=== PATIENT | female | born 2005 | race Caucasian/White ===

== ENCOUNTER → 2023-10-17 | Outpatient (CLI) | payer OTHER ==
[2023-10-17 19:02] LABS: BASOPHILS ABSOLUTE AUTO 0.02 K/mm3 (0.00-0.23); BASOPHILS PERCENT AUTO 0 % (0-2); EOSINOPHILS ABSOLUTE AUTO 0.06 K/mm3 (0.00-0.68); EOSINOPHILS PERCENT AUTO 1 % (0-6); Hematocrit 36.5 % (33.0-51.0); Hemoglobin 12.2 g/dL (11.5-16.0); IMMATURE GRAN ABSOLUTE AUTO 0.01 K/mm3 (0.00-0.10); IMMATURE GRAN PERCENT AUTO 0 % (0-1); LYMPHOCYTES PERCENT AUTO 44 % (21-46); MONOCYTES ABSOLUTE AUTO 0.37 K/mm3 (0.16-1.47); MONOCYTES PERCENT AUTO 8 % (4-13); Mean Corpuscular HGB 31.8 pg (26.0-34.0); Mean Corpuscular HGB Conc 33.4 g/dL (31.5-36.5); Mean Corpuscular Volume 95 fL (80-100); Mean Platelet Volume 10.9 fL (9.1-12.4); NEUTROPHILS ABSOLUTE AUTO 2.25 K/mm3 (1.96-9.15); NEUTROPHILS PERCENT AUTO 47 % (41-73); Platelet Count 263 K/mm3 (150-400); RDW Coefficient Variation 11.9 % (11.7-14.2); RDW Standard Deviation 41.4 fL (35.1-46.3); Red Blood Cell Count 3.84 M/mm3 (3.80-5.20); White Blood Cell Count 4.81 K/mm3 (4.00-11.30)
[2023-10-17 21:22] LABS: Thyroid Stimulating Hormone 1.03 uIU/mL (0.360-4.800)
[2023-10-17 21:23] LABS: Albumin, Blood 4.2 g/dL (3.4-5.0); Albumin/Globulin Ratio 1.3 (0.8-1.8); Bilirubin, Total 0.3 mg/dL (0.1-1.0); Bun/Creatinine Ratio 17.2 (12.0-20.0); Creatinine, Blood 0.7 mg/dL (0.40-1.00); Globulin, Blood 3.2 g/dL (2.2-4.0); Potassium, Blood 3.7 mmol/L (3.5-5.5); Total Protein, Blood 7.4 g/dL (6.4-8.2)
[2023-10-20 22:39] LABS: TESTOSTERONE, FREE BY DIALYSIS 58.6 pg/mL; TESTOSTERONE, TOTAL MASS SPEC 289.1 ng/dL
== END | disposition home or self-care (01) ==
LOC: LAB 17:37 → LAB SHORT 17:37
PROVIDERS: Family Medicine
DX: F64.9 Gender identity disorder, unspecified (principal); F41.9 Anxiety disorder, unspecified
CPT/HCPCS: 80053; 84443; 85025

== ENCOUNTER 2023-10-28 11:13 | Emergency (ER) | payer OTHER ==
[~2023-10-28] VITALS: Ht 162.6 cm; Wt 55.8 kg
[2023-10-28 11:16] VITALS: BP 105/61
[2023-10-28] MEDS ORDERED: Acetaminophen650 M1 PO (11:39)
[2023-10-28] MEDS ORDERED: IBUP800 PO (11:39)
[2023-10-28] MEDS ORDERED: Amoxicillin500 MG PO ×2 (13:11→13:14)
[2023-10-28] MEDS ORDERED: Percocet 5-3251 EACH PO (13:25)
== END 2023-10-28 13:30 | disposition home or self-care (01) ==
LOC: ER 11:13
DX: K04.7 Periapical abscess without sinus (principal); K02.9 Dental caries, unspecified; Z88.8 Allergy status to other drugs, medicaments and biological substances
CPT/HCPCS: 64400; 99283-25

== ENCOUNTER 2023-11-27 15:27 | Observation (INO) | payer OTHER ==
[~2023-11-27] VITALS: Ht 162.6 cm; Wt 56.7 kg
[~2023-11-27 15:27] MED LIST: Acetaminophen650 M1 PO; Amoxicillin500 MG PO; IBUP800 PO; Percocet 5-3251 EACH PO
[2023-11-27] MEDS ORDERED: Ventolin/Prove6.7 GM INH (16:01)
[2023-11-27] MEDS ORDERED: BUDESONIDE-FO10.2 G3 IH (16:01)
[2023-11-27] MEDS ORDERED: DEPO-TESTO200 MG/18 IM (16:01)
[2023-11-27] MEDS ORDERED: ARIPIPRAZOLE2 M1 PO (16:01)
[2023-11-27] MEDS ORDERED: IBU800 M1 PO (16:01)
[2023-11-27 18:23] LABS: BASOPHILS ABSOLUTE AUTO 0.03 K/mm3 (0.00-0.23); BASOPHILS PERCENT AUTO 0 % (0-2); EOSINOPHILS ABSOLUTE AUTO 0.07 K/mm3 (0.00-0.68); EOSINOPHILS PERCENT AUTO 1 % (0-6); Hematocrit 38.9 % (33.0-51.0); Hemoglobin 12.7 g/dL (11.5-16.0); IMMATURE GRAN ABSOLUTE AUTO 0.02 K/mm3 (0.00-0.10); IMMATURE GRAN PERCENT AUTO 0 % (0-1); LYMPHOCYTES ABSOLUTE AUTO 2.49 K/mm3 (0.84-5.20); LYMPHOCYTES PERCENT AUTO 36 % (21-46); MONOCYTES ABSOLUTE AUTO 0.47 K/mm3 (0.16-1.47); MONOCYTES PERCENT AUTO 7 % (4-13); Mean Corpuscular HGB 31.7 pg (26.0-34.0); Mean Corpuscular HGB Conc 32.6 g/dL (31.5-36.5); Mean Corpuscular Volume 97 fL (80-100); NEUTROPHILS ABSOLUTE AUTO 3.87 K/mm3 (1.96-9.15); NEUTROPHILS PERCENT AUTO 56 % (41-73); Platelet Count 238 K/mm3 (150-400); RDW Coefficient Variation 12.5 % (11.7-14.2); RDW Standard Deviation 44.8 fL (35.1-46.3); Red Blood Cell Count 4.01 M/mm3 (3.80-5.20); White Blood Cell Count 6.95 K/mm3 (4.00-11.30)
[2023-11-27 18:36] LABS: Acetaminophen, Random 8.6 ug/mL (10.0-30.0); Alanine Aminotransfer (ALT/SGP 26 U/L (12-78); Albumin/Globulin Ratio 1.2 (0.8-1.8); Alk Phos 63 U/L (50-136); Anion Gap 2 mmol/L (6-16); Aspartate Aminotrans (AST/SGOT 17 U/L (12-37); Bilirubin, Total 0.2 mg/dL (0.1-1.0); Blood Urea Nitrogen 13 mg/dL (8-24); CO2, Blood 26 mmol/L (21-32); Calcium, Blood 9.1 mg/dL (8.5-10.1); Chloride, Blood 110 mmol/L (98-108); Creatinine, Blood 0.72 mg/dL (0.40-1.00); Ethanol (Alcohol), Blood, Med <3 mg/dL; Globulin, Blood 3.2 g/dL (2.2-4.0); Glomerular Filtration Rate 123 (60-); Glucose, Blood 119 mg/dL (70-99); Potassium, Blood 3.9 mmol/L (3.5-5.5); Salicylate <1.7 mg/dL (2.8-20.0); Sodium, Blood 138 mmol/L (136-145); Total Protein, Blood 7.2 g/dL (6.4-8.2)
[2023-11-27 19:59] LABS: Influenza A, PCR NEGATIVE (NEGATIVE); Influenza B, PCR NEGATIVE (NEGATIVE); Resp Syncytial Virus, PCR NEGATIVE (NEGATIVE); SARS-Cov-2 (COVID-19) PCR, MMC NEGATIVE (NEGATIVE)
[2023-11-27 20:02] LABS: U Amphetamine Screen Not Detected; U Barbituate Screen Not Detected; U Benzodiazapine Screen Not Detected; U Buprenorphine Screen Not Detected; U Cannabinoids Screen Not Detected; U Cocaine Screen Not Detected; U Methadone Screen Not Detected; U Methamphetamine Screen Not Detected; U Opiates Screen Not Detected; U Oxycodone Screen Not Detected; U Phencyclidine Screen Not Detected
[2023-11-27] MEDS ORDERED: Acetaminophen 325 MG TABLET PO PRN (20:35)
[2023-11-27] MEDS ORDERED: Albuterol HFA200 ACT/6.7 GM INH INH SCH (20:55)
[2023-11-28] MEDS ORDERED: QUEtiapine Fumarate 200 MG Tab PO SCH (21:00)
[2023-11-29 09:52] VITALS: BP 115/73
[2023-11-29] MEDS ORDERED: QUET200 PO (10:01)
== END 2023-11-29 14:53 | disposition home or self-care (01) ==
LOC: ER 15:27 → EOR 15:28
PROVIDERS: ADMIT Student in an Organized Health Care Education/Training Program
DX: F31.81 Bipolar II disorder (principal); Z20.822 Contact with and (suspected) exposure to COVID-19
CPT/HCPCS: 0241U; 80053; 81025; 85025; 93005; 93010; 99285-25; A9270; G0378; G0480